=== PATIENT | male | born 1995 | race Caucasian/White ===

== ENCOUNTER 2021-09-03 22:06 | Emergency (ER) | payer OTHER ==
[~2021-09-03 22:06] MED LIST: BACTRIM DS TAB1 EACH PO; NAPROXEN500 MG PO
== END 2021-09-03 23:58 | disposition home or self-care (01) ==
LOC: FER 22:06
DX: S43.015A Anterior dislocation of left humerus, initial encounter (principal); F17.200 Nicotine dependence, unspecified, uncomplicated; X50.1XXA Overexertion from prolonged static or awkward postures, initial encounter; Y92.009 Unspecified place in unspecified non-institutional (private) residence as the place of occurrence of the external cause
CPT/HCPCS: 73020; 73030